=== PATIENT | male | born 1965 ===

== ENCOUNTER 2021-04-02 07:57 | Observation (INO) ==
[2021-04-02] MEDS ORDERED: NS 0.9% 1000 ml BAG 1,000 ML IV ONE ×2 (08:13→11:26)
[2021-04-02 08:50] LABS: ABS Lymphocytes 0.3 10^3/ul (1.0-4.8); ABS Monocytes 0.5 10^3/ul (0-0.8); ABS Neutrophils 5.7 10^3/ul (1.5-7.7); Eosinophil % 0.1 %; Hematocrit 45 % (42-52); Hemoglobin 15.2 g/dL (14.0-18.0); Lymphocyte % 4.5 %; Mean Corpuscular HGB Conc 34 g/dL (31-36); Mean Corpuscular Hemoglobin 29 pg (27-31); Mean Corpuscular Volume 86 fL (80-94); Mean Platelet Volume 7.1 fL (7.4-10.4); Nucleated Red Blood Cells % 0.1; Platelet Count 194 10^3/uL (150-450); Red Blood Count 5.22 10^6 /uL (4.18-5.48); Red Cell Distribution Width 14 % (10-15); White Blood Count 6.5 10^3/uL (3.5-10.8)
[2021-04-02 08:52] LABS: Ammonia 46 mcmol/L (16-53)
[2021-04-02 09:01] LABS: ALT 24 U/L (7-52); AST 26 U/L (13-39); Albumin 3.6 g/dL (3.2-5.2); Albumin/Globulin Ratio 1.3 (1-3); Alkaline Phosphatase 68 U/L (35-149); Anion Gap 6 mmol/L (2-11); Blood Urea Nitrogen 17 mg/dL (6-24); CO2 Carbon Dioxide 22 mmol/L (22-32); Calcium 8.2 mg/dL (8.6-10.3); Chloride 105 mmol/L (101-111); Globulin 2.7 g/dL (2-4); Glucose 120 mg/dL (70-100); Magnesium 1.9 mg/dL (1.9-2.7); Potassium 4.1 mmol/L (3.5-5.0); Sodium 133 mmol/L (135-145); Total Protein 6.3 g/dL (6.4-8.9)
[2021-04-02 09:24] LABS: BNP 16 pg/mL (<=100)
[2021-04-02 09:29] LABS: Alcohol, S < 13 mg/dL (<13)
[2021-04-02 09:45] LABS: TSH Ultra Thyroid Stim Horm 0.58 mcIU/mL (0.34-5.60)
[2021-04-02] MEDS ORDERED: Al Hydrox/Mg Hydrox/Simet LIQ 30 ML UDC PO PRN (12:03)
[2021-04-02] MEDS ORDERED: Ondansetron 4 mg VIAL 2 MG/ML 2 ml VIAL IV PRN (12:03)
[2021-04-02] MEDS ORDERED: diPHENhydraMINE 25 mg TAB PO PRN (12:06)
[2021-04-02] MEDS ORDERED: NS 0.9% 1000 ml BAG 1,000 ML IV SCH (12:15)
[2021-04-02 12:51] LABS: C Reactive Protein 54.64 mg/L (<8.01)
[2021-04-02 14:13] LABS: Creatine Kinase 55 U/L (10-223)
[2021-04-02 15:00] LABS: Rapid COVID-19 Molecular Undetected (Undetected)
[2021-04-03 07:33] LABS: ABS Eosinophils 0.1 10^3/ul (0-0.6); ABS Lymphocytes 0.7 10^3/ul (1.0-4.8); ABS Monocytes 0.8 10^3/ul (0-0.8); ABS Neutrophils 3.6 10^3/ul (1.5-7.7); Eosinophil % 1.2 %; Hematocrit 38 % (42-52); Lymphocyte % 13.5 %; Mean Corpuscular HGB Conc 34 g/dL (31-36); Mean Corpuscular Hemoglobin 29 pg (27-31); Mean Corpuscular Volume 87 fL (80-94); Mean Platelet Volume 6.9 fL (7.4-10.4); Platelet Count 173 10^3/uL (150-450); Red Blood Count 4.42 10^6 /uL (4.18-5.48); Red Cell Distribution Width 14 % (10-15); White Blood Count 5.2 10^3/uL (3.5-10.8)
[2021-04-03 07:51] LABS: Calcium 8.2 mg/dL (8.6-10.3); Potassium 4.2 mmol/L (3.5-5.0)
[2021-04-03] MEDS ORDERED: Iohexol 350 (CONTRAST) 500 ML MDV IV ONE (11:54)
[2021-04-03 16:38] VITALS: BP 124/88
[2021-04-05 21:27] LABS: Anaplasma phagocytophilum Negative (Negative); B. miyamotoi PCR, B Negative (Negative); Babesia divergens/MO-1 Negative (Negative); Babesia ducani Negative (Negative); Ehrlichia chaffeensis Negative (Negative); Ehrlichia ewingii/canis Negative (Negative); Ehrlichia muris eauclairensis Negative (Negative)
== END 2021-04-03 18:25 | disposition home or self-care (01) ==
LOC: ED 07:57 → MED 07:57
PROVIDERS: ADMIT Pediatrics; ATTEND Pediatrics

== ENCOUNTER 2022-07-19 20:25 | Observation (INO) ==
[2022-07-19 20:49] LABS: ABS Eosinophils 0.2 10^3/ul (0-0.6); ABS Lymphocytes 1.5 10^3/ul (1.0-4.8); ABS Monocytes 0.7 10^3/ul (0-0.8); ABS Neutrophils 2.8 10^3/ul (1.5-7.7); Eosinophil % 4.2 %; Hematocrit 42 % (42-52); Hemoglobin 13.8 g/dL (14.0-18.0); Lymphocyte % 29.4 %; Mean Corpuscular HGB Conc 33 g/dL (31-36); Mean Corpuscular Hemoglobin 29 pg (27-31); Mean Corpuscular Volume 87 fL (80-94); Mean Platelet Volume 7.3 fL (7.4-10.4); Platelet Count 247 10^3/uL (150-450); Red Blood Count 4.78 10^6 /uL (4.18-5.48); Red Cell Distribution Width 14 % (10-15); White Blood Count 5.3 10^3/uL (3.5-10.8)
[2022-07-19 21:07] LABS: Albumin 4.2 g/dL (3.2-5.2); Calcium 8.9 mg/dL (8.6-10.3); Creatinine, Serum 0.71 mg/dL (0.67-1.17); Globulin 2.1 g/dL (2-4); Potassium 4.2 mmol/L (3.5-5.0); Total Bilirubin 0.6 mg/dL (0.2-1.0); Total Protein 6.3 g/dL (6.4-8.9); eGFR CKD-EPI 107.7 (>60)
[2022-07-19 21:08] LABS: INR 1.13 (0.88-1.18)
[2022-07-19 22:05] LABS: High Sensitivity Troponin 1 Hr 5 pg/mL (<20)
[2022-07-20 02:58] LABS: HDL Cholesterol 47.7 mg/dL
[2022-07-20] MEDS ORDERED: Metoprolol Tartrate 5 mg VIAL 5 ml VIAL (1 mg/ml) ONE (10:45)
[2022-07-20] MEDS ORDERED: Atropine 0.1 MG/ML 10 ml SYR (1 mg) ONE (10:45)
[2022-07-20] MEDS ORDERED: DOBUTamine 2000 MCG/ML IVPREMX 0 MG/0 ML BAG IV ONE (10:45)
[2022-07-20] MEDS ORDERED: Nitroglycerin 0.1 mg/hr PATCH (2.5 mg) TRANSDERM SCH (15:20)
[2022-07-20 15:55] VITALS: BP 126/86
== END 2022-07-20 18:10 | disposition home or self-care (01) ==
LOC: ED 20:25 → EDHOLD 20:25 → SUATTDRO 07-20 02:34 → MEDTELE 07-20 04:39
PROVIDERS: ADMIT Internal Medicine; ATTEND Hospitalist

== ENCOUNTER 2022-07-25 09:30 | Observation (INO) ==
[~2022-07-25 09:30] MED LIST: NS 0.9% 1000 ml BAG 1,000 ML IV ONE
[2022-07-25] MEDS ORDERED: fentaNYL 100 mcg/2 ml 50 MCG/ML VIAL IV SLOW PU ONE (09:41)
[2022-07-25] MEDS ORDERED: Midazolam 10 mg/10 ml VIAL 1 mg/ml 10 ml VIAL (10 mg) IV SLOW PU ONE (09:41)
[2022-07-25] MEDS ORDERED: Midazolam 5 mg/5 ml VIAL 1 mg/ml 5 ml VIAL (5 mg) ONE (13:25)
[2022-07-25] MEDS ORDERED: fentaNYL 100 mcg/2 ml 50 MCG/ML VIAL ONE (13:25)
[2022-07-25] MEDS ORDERED: Heparin 1,000 UNIT/ML 10 ml (10,000 UNITS) CATHLAB/DIALYSIS ONE (13:25)
[2022-07-25] MEDS ORDERED: nitroGLYCERIN DRIP 25,000 MCG/250 ML BTL ONE (13:25)
[2022-07-25] MEDS ORDERED: Heparin 2 UNITS/ML 1000 mls 2,000 ML IV ONE (13:25)
[2022-07-25] MEDS ORDERED: VERAPAMIL 2.5 MG/ML 2 ML VIAL ** 5 mg/2 ml ONE (13:25)
[2022-07-25] MEDS ORDERED: Lidocaine 1% MPF 5 ML VIAL ONE (13:26)
[2022-07-25] MEDS ORDERED: Iohexol 350 (CONTRAST) 100 ML PAK IV ONE ×2 (13:26→15:07)
[2022-07-25] MEDS ORDERED: Atropine 0.1 MG/ML 10 ml SYR (1 mg) ONE (13:42)
[2022-07-25] MEDS ORDERED: Bivalirudin 250 MG VIAL ONE ×2 (13:55→15:17)
[2022-07-25] MEDS ORDERED: Phenylephrine 40 mcg/mL 10mL (400mcg) SYRINGE ONE (13:56)
[2022-07-25] MEDS ORDERED: Heparin 2 UNITS/ML 1000 mls 1,000 ML IV ONE (14:05)
[2022-07-25] MEDS ORDERED: NS 0.9% 1000 ml BAG 1,000 ML IV SCH (16:30)
[2022-07-25 17:32] LABS: Hematocrit 42 % (42-52); Hemoglobin 14.2 g/dL (14.0-18.0); Mean Corpuscular HGB Conc 34 g/dL (31-36); Mean Corpuscular Hemoglobin 29 pg (27-31); Mean Corpuscular Volume 87 fL (80-94); Mean Platelet Volume 7.6 fL (7.4-10.4); Platelet Count 235 10^3/uL (150-450); Red Blood Count 4.84 10^6 /uL (4.18-5.48); Red Cell Distribution Width 14 % (10-15); White Blood Count 5.9 10^3/uL (3.5-10.8)
[2022-07-25 18:12] LABS: Albumin/Globulin Ratio 1.9 (1-3); Creatinine, Serum 0.69 mg/dL (0.67-1.17); Globulin 2.1 g/dL (2-4); Potassium 4.1 mmol/L (3.5-5.0); Total Bilirubin 0.8 mg/dL (0.2-1.0); Total Protein 6.1 g/dL (6.4-8.9); eGFR CKD-EPI 108.6 (>60)
[2022-07-25] MEDS ORDERED: Heparin DRIP 25,000 UNITS BAG 25,000 UNITS/500 ML BAG IV SCH (18:45)
[2022-07-26 05:24] LABS: ABS Eosinophils 0.3 10^3/ul (0-0.6); ABS Lymphocytes 1.2 10^3/ul (1.0-4.8); ABS Monocytes 0.6 10^3/ul (0-0.8); ABS Neutrophils 4.7 10^3/ul (1.5-7.7); Eosinophil % 4.9 %; Hematocrit 40 % (42-52); Hemoglobin 13.3 g/dL (14.0-18.0); Mean Corpuscular HGB Conc 33 g/dL (31-36); Mean Corpuscular Hemoglobin 29 pg (27-31); Mean Corpuscular Volume 87 fL (80-94); Mean Platelet Volume 7.5 fL (7.4-10.4); Platelet Count 212 10^3/uL (150-450); Red Blood Count 4.62 10^6 /uL (4.18-5.48); Red Cell Distribution Width 14 % (10-15); White Blood Count 6.8 10^3/uL (3.5-10.8)
[2022-07-26 05:59] LABS: Calcium 8.4 mg/dL (8.6-10.3); Creatinine, Serum 0.66 mg/dL (0.67-1.17); eGFR CKD-EPI 110.1 (>60)
[2022-07-26 10:02] VITALS: BP 116/81
== END 2022-07-26 10:45 | disposition home or self-care (01) ==
LOC: CHICATH 09:30 → INTOOBSV 16:22 → ICU 16:22
PROVIDERS: ADMIT Specialist; ATTEND Specialist